=== PATIENT | male | born 1980 | race Caucasian/White ===

== ENCOUNTER 2017-10-16 20:03 | Emergency (ER) | payer SELFPAY ==
[~2017-10-16] VITALS: Ht 172.7 cm; Wt 73.0 kg
[2017-10-16 23:29] LABS: EOSINOPHILS % 7.7 % (0.0-5.0); HEMATOCRIT. 35.6 % (42.0-52.0); HEMOGLOBIN. 11.7 g/dL (14.0-18.0); LYMPHOCYTES % 45.3 % (20.0-50.0); MEAN CORPUSCULAR HEMOGLOBIN 23.7 pg (28.0-32.0); MEAN CORPUSCULAR VOLUME 71.8 fL (80.0-94.0); MEAN PLATELET VOLUME 8.6 fl (7.4-10.4); MONOCYTES % 4.6 % (2.0-8.0); NEUTROPHILS % 41.4 % (40.0-76.0); PLATELET 184 x1000/uL (130-400); RED BLOOD CELL COUNT 4.95 mill/uL (4.7-6.1); RED CELL DISTRIBUTION WIDTH 26.5 % (11.6-14.6)
[2017-10-17 00:19] LABS: CHLORIDE 107 mEq/L (98-107)
[2017-10-17 00:20] LABS: ETHANOL BLOOD 421 mg/dL
[2017-10-17 00:35] LABS: PLATELET ESTIMATE NORMAL
[2017-10-17 06:47] VITALS: BP 105/63
== END 2017-10-17 08:59 | disposition home or self-care (01) ==
LOC: ER 20:06
DX: F10.129 Alcohol abuse with intoxication, unspecified (principal); Z59.0 Homelessness; Y90.8 Blood alcohol level of 240 mg/100 ml or more
CPT/HCPCS: 36415; 80048; 80307; 80329; 85025; 99284; G0482